=== PATIENT | female | born 1970 | race Caucasian/White ===

== ENCOUNTER 2020-12-24 19:30 | Emergency (ER) | payer OTHER, SELFPAY ==
--- NOTE | 2020-12-24 19:34 | ED.ABDPAIN ---
HPI - Abdominal Pain General Chief Complaint: Abdominal Pain Stated Complaint: LOW ABD PAIN Time Seen by Provider: 12/24/20 19:50 Source: patient Mode of arrival: ambulatory Limitations: no limitations History of Present Illness HPI narrative: 50-year-old female presents with concern for lower abdominal pain. Reports symptoms started after doing heavy lifting and yard work on . She noticed pain first when she was having a bowel movement. Reports the pain radiates around both hips and she feels pressure in her suprapubic area. She denies other abdominal pain. She denies nausea, vomiting, diarrhea. She denies constipation, bloody stools. She denies poor appetite. She denies any direct injury or trauma. She reports she can find positions of comfort with no pain, pain occurs when she is sitting up, walking. Reports pain is relieved when she is lying on her side. Patient has history of hysterectomy. MD elicited complaint: abdominal pain Related Data Home Medications Medication Instructions Recorded Confirmed cyproheptadine 4 mg PO BID 05/07/19 08/16/20 albuterol sulfate [ProAir HFA] INHALATION 05/28/19 08/16/20 Allergies Allergy/AdvReac Type Severity Reaction Status Date / Time amoxicillin [From Augmentin] Allergy Mild Unknown Verified 12/24/20 19:35 clavulanic acid Allergy Mild Unknown Verified 12/24/20 19:35 [From Augmentin] erythromycin base Allergy Unknown anything Verified 12/24/20 19:35 mycin Review of Systems Review of Systems: Narrative: CONSTITUTIONAL: Denies malaise, chills, sweats, or fever. CARDIOVASCULAR: Denies chest pain, palpitations, or edema. RESPIRATORY: Denies cough or dyspnea. GASTROINTESTINAL: Denies abdominal pain, nausea, vomiting, diarrhea, bloody, or mucous stools. Reports suprapubic pressure, tailbone pain, suprapubic pressure with defecation. Denies loss of bowel function GENITOURINARY: Denies dysuria or hematuria. Denies abnormal vaginal discharge, bleeding. Denies loss of bladder function or perianal anesthesia SKIN: Denies bruising, redness MUSCULOSKELETAL: Reports bilateral low back pain NEUROLOGIC: Denies numbness, weakness, or headache. All systems reviewed & are unremarkable except as noted in HPI and below PMFSH Past Medical History Medical History (Updated 12/24/20 @ 20:14 by Janie Talavera NP) Anal fissure Broken fingers Broken forearm Broken toes External hemorrhoids History of sprain of both ankles Hyperlipidemia Normal colonoscopy Obesity Plantar fascia syndrome Seasonal asthma Surgical History Surgical History H/O section H/O ovarian cystectomy History of breast biopsy History of hysterectomy Family History Family History Mother Diabetes mellitus Family history of malignant neoplasm of uterus Father Carcinoma of colon Malignant neoplasm of prostate Family history of malignant neoplasm of urinary bladder Other Cerebrovascular accident Family history of kidney disease Family history of malignant neoplasm Social History Social History Smoking status: Never smoker Second hand tobacco smoke exposure: Yes Alcohol intake: current Substance use: never Substance use type: does not use Gender identity (if verbalized by the patient): Female Spiritual care concerns: Yes Agree to blood products: Yes Comments At time of signature, agree with nursing past medical, surgical, social and family history. There is no relevant family history pertinent to the presenting complaint Exam Narrative: Exam Narrative: GENERAL: Well-appearing, well-nourished, and in no acute distress. HEAD: Normocephalic, atraumatic. EYES: PERRLA, conjunctivae clear, and EOMI. ENT: Nares clear, turbinates pink, no rhinorrhea or epistaxis. Mucous membranes moist. [place]
[2020-12-24 19:35] VITALS: BP 151/81; PULSE 87; RESP 16; TEMP 37.1; O2SAT 99
== END 2020-12-24 20:20 | disposition home or self-care (01) ==
PROVIDERS: Emergency Provider Nurse Practitioner
DX: N81.9 Female genital prolapse, unspecified (principal); E78.5 Hyperlipidemia, unspecified; E66.9 Obesity, unspecified; J45.909 Unspecified asthma, uncomplicated
CPT/HCPCS: 81003; 99212; G0463

== ENCOUNTER 2021-01-05 07:58 | Outpatient (CLI) | payer OTHER, SELFPAY ==
--- NOTE | ~2021-01-05 | MM_ITS ---
EXAMINATION: MM screening [facility] BI w heena HISTORY: Screening mammogram TECHNIQUE: Craniocaudal and mediolateral oblique 3-D tomosynthesis images were obtained and synthetic 2-D images were generated. CAD analysis was submitted and interpreted. COMPARISON: 02/14/2019, 01/29/2018, 12/26/2016 BREAST PARENCHYMAL COMPOSITION: There are scattered areas of fibroglandular density. FINDINGS: There is no evidence of suspicious mass, calcification, or architectural distortion to sugg est malignancy in either breast. There has been no suspicious interval change. IMPRESSION: 1. No mammographic evidence of malignancy. 2. Recommend routine screening mammography in one year. BI-RADS Category 1: Negative Reviewed, dictated and finalized at location A.
== END 2021-01-05 07:59 | disposition home or self-care (01) ==
LOC: ANHIMG 08:01
PROVIDERS: PCP Obstetrics & Gynecology; Visit Provider Obstetrics & Gynecology
DX: Z12.31 Encounter for screening mammogram for malignant neoplasm of breast (principal)
CPT/HCPCS: 77063; 77067

== ENCOUNTER → 2021-01-26 12:25 | Outpatient (CLI) | payer OTHER, SELFPAY ==
--- NOTE | ~2021-01-26 | XR_ITS ---
EXAMINATION: XR hand RT min 3V DATE: 01/26/2021 12:58 INDICATION: Right hand pain. TECHNIQUE: 3 views of right hand were obtained. COMPARISON: None. FINDINGS: Bone alignment is normal. No fracture. There is mild osteoarthritis of first carpometacarpa l joint, second metacarpophalangeal joint, first interphalangeal joint, and fourth distal interphalan geal joint. There is moderate osteoarthritis of second and fifth distal interphalangeal joints. IMPRESSION: 1. Polyarticular osteoarthritis. Reviewed, dictated and finalized at location A.
--- NOTE | ~2021-01-26 | XR_ITS ---
EXAMINATION: XR hand LT min 3V DATE: 01/26/2021 12:58 INDICATION: Left hand pain. TECHNIQUE: 3 views of left hand were obtained. COMPARISON: None. FINDINGS: Bone alignment is normal. No fracture. There is severe osteoarthritis of first carpometacar pal joint and mild osteoarthritis of second, third, and fifth distal interphalangeal joints. IMPRESSION: 1. Polyarticular osteoarthritis. Reviewed, dictated and finalized at location A.
== END ==
PROVIDERS: PCP Family Medicine; Visit Provider Physician Assistant
DX: M19.041 Primary osteoarthritis, right hand (principal); M19.042 Primary osteoarthritis, left hand
CPT/HCPCS: 73130

== ENCOUNTER 2021-02-06 14:21 | Emergency (ER) | payer OTHER, SELFPAY ==
--- NOTE | ~2021-02-06 | XR_ITS ---
EXAMINATION: XR shoulder RT min 2V DATE: 02/06/2021 15:08 INDICATION: Right shoulder pain. TECHNIQUE: 4 views of right shoulder were obtained. COMPARISON: None. FINDINGS: Bone alignment is normal. No fracture. The glenohumeral joint space is normal. There are lo ose bodies in the glenohumeral joint. There is mild acromioclavicular joint osteoarthritis. IMPRESSION: 1. Loose bodies in the glenohumeral joint. 2. Mild acromioclavicular joint osteoarthritis. Reviewed, dictated and finalized at location B.
[2021-02-06 14:29] VITALS: BP 138/97; PULSE 97; RESP 18; TEMP 37.4; O2SAT 100
--- NOTE | 2021-02-06 14:45 | ED.GENADULT ---
HPI - General Adult General Chief complaint: Extremity Problem,Nontraumatic Stated complaint: rt arm pain Time Seen by Provider: 02/06/21 14:46 Source: patient Mode of arrival: ambulatory Limitations: no limitations History of Present Illness HPI narrative: Patient is a 50-year-old female presents to urgent care via POV for evaluation of right shoulder pain that has been present for 2 days. She reports that shoulder pain is generalized. Additionally, she reports constant sharp and achy pain, decreased range of motion, difficulty picking up objects, and sleep difficulty secondary to pain. No relief with Aleve, ibuprofen, applied heat or ice. Everything worsens symptoms. She reports her pain is a 9 out of 10 on a pain scale. 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 She also reports lifting her granddaughter over the weekend which she usually does not. She reports a recent diagnosis of osteoarthritis Related Data Home Medications Medication Instructions Recorded Confirmed albuterol sulfate [ProAir HFA] 2 puff INHALATION QID PRN 05/28/19 02/06/21 Allergies Allergy/AdvReac Type Severity Reaction Status Date / Time amoxicillin [From Augmentin] Allergy Mild Nausea, Verified 02/06/21 14:35 abdominal pain clavulanic acid Allergy Mild Nausea, Verified 02/06/21 14:35 [From Augmentin] abdominal pain erythromycin base Allergy Unknown anything Verified 02/06/21 14:35 mycin Review of Systems Review of Systems: Denies fever, chills, sweats, change in appetite, poor p.o. intake, malaise, calf tenderness, skin color changes, rash, warmth, swelling, numbness, tingling, loss of sensation, deformity, decreased range of motion, weakness, difficulty with ambulation/coordination, nausea, vomiting, lymphadenopathy, shortness of breath, chest pain, heart palpitations, and heart murmur. [facility] Past Medical History Medical History (Updated 02/06/21 @ 15:26 by GARETH Gaston, BC) Anal fissure Broken fingers Broken forearm Broken toes External hemorrhoids History of sprain of both ankles Hyperlipidemia Normal colonoscopy Obesity Plantar fascia syndrome Seasonal asthma Surgical History Surgical History H/O section H/O ovarian cystectomy History of breast biopsy History of hysterectomy Family History Family History Mother Diabetes mellitus Family history of malignant neoplasm of uterus Father Carcinoma of colon Malignant neoplasm of prostate Family history of malignant neoplasm of urinary bladder Other Cerebrovascular accident Family history of kidney disease Family history of malignant neoplasm Social History Social History Smoking status: Never smoker Second hand tobacco smoke exposure: Yes Alcohol intake: current Alcohol use details: Very rarely Substance use: never Substance use type: does not use Gender identity (if verbalized by the patient): Female Spiritual care concerns: Yes Agree to blood products: Yes Comments I have reviewed and agree with the patient's past medical, surgical, social, and family hx as documented by the RN. There is no relevant family history pertinent to the presenting complaint. Exam Narrative: GENERAL: Well-appearing, well-nourished, and in no acute distress. HEAD: Normocephalic, atraumatic. NECK: Supple. No Lymphadenopathy or nuchal rigidity appreciated. CHEST: Bilateral lung william are clear to auscultation. No respiratory distress. No evidence of cough or pleuritic cp upon examination. HEART: Regular rate and rhythm. No murmur, gallop, or rub heard. EXTREMITIES: Moderate pain elicited to anterior and posterior aspect of right shoulder with deep palpatio
== END 2021-02-06 15:38 | disposition home or self-care (01) ==
PROVIDERS: Emergency Provider Nurse Practitioner Family
DX: M25.511 Pain in right shoulder (principal); E78.5 Hyperlipidemia, unspecified; E66.9 Obesity, unspecified; Z68.34 Body mass index [BMI] 34.0-34.9, adult
CPT/HCPCS: 73030; 99213; G0463

== ENCOUNTER 2022-03-05 14:59 | Emergency (ER) | payer OTHER, SELFPAY ==
[2022-03-05 15:10] VITALS: BP 146/76; PULSE 87; RESP 16; TEMP 37; O2SAT 97
--- NOTE | 2022-03-05 15:58 | ED.SKABFB ---
HPI - Skin/Abscess/Foreign Bdy General Chief complaint: Skin/Abscess/Foreign Body Stated complaint: INFECTED SPOT ON BACK Time Seen by Provider: 03/05/22 15:15 Source: patient Mode of arrival: ambulatory Limitations: no limitations History of Present Illness HPI narrative: Ms. Pimentel is a 51-year-old female patient presenting to the clinic today with complaints of a possible infection to her left upper back. She reports that this has been an ongoing concern for a couple years and saw her insulation sprayer and they told her that it was just a blackhead. She reports 1 to 2 years ago that it had drained and had a nasty smell but went away. Over the last couple months it has returned and has gotten more tender and painful and now she noticed yesterday that it was red and swollen. She denies any fever or chills. Related Data Home Medications Medication Instructions Recorded Confirmed escitalopram oxalate 10 mg tablet 10 mg PO DAILY 09/18/21 03/05/22 Allergies Allergy/AdvReac Type Severity Reaction Status Date / Time amoxicillin [From Augmentin] Allergy Mild Nausea, Verified 03/05/22 15:10 abdominal pain clavulanic acid Allergy Mild Nausea, Verified 03/05/22 15:10 [From Augmentin] abdominal pain erythromycin base Allergy Unknown anything Verified 03/05/22 15:10 mycin Review of Systems Review of Systems: Pertinent positives per HPI. Patient denies any fever, chills, rash, headache, visual changes, dizziness, cough, runny nose, sore throat, shortness of breath, chest pain, palpitations, nausea, vomiting, diarrhea, constipation, abdominal pain, or any urinary issues. [facility] Past Medical History Medical History Anal fissure Broken fingers Broken forearm Broken toes External hemorrhoids History of sprain of both ankles Hyperlipidemia Normal colonoscopy Obesity Osteoarthritis Plantar fascia syndrome Seasonal asthma Surgical History Surgical History H/O section H/O ovarian cystectomy History of breast biopsy History of hysterectomy Family History Family History Mother Diabetes mellitus Family history of malignant neoplasm of uterus Father Carcinoma of colon Malignant neoplasm of prostate Family history of malignant neoplasm of urinary bladder Other Cerebrovascular accident Family history of kidney disease Family history of malignant neoplasm Social History Social History Smoking status: Never smoker Second hand tobacco smoke exposure: Yes Alcohol intake: current Alcohol use details: very rarely Substance use: never Substance use type: does not use Gender identity (if verbalized by the patient): Female Spiritual care concerns: Yes Agree to blood products: Yes Comments At the time of my signature, I reviewed and agree with the nursing past medical, surgical, social, and family history. There is no relevant family history pertinent to the patient complaint. Exam Narrative: General: Well-developed, well nourished, in no apparent distress Head: Normocephalic, atraumatic. Cardio: Regular rate and rhythm, s1 and s2 normal, no murmur appreciated. Resp: Clear to auscultation bilaterally, no rhonchi, rales, wheezing or rubs. Integumentary: [place], warm, and dry, half dollar size induration with swelling and mild erythremia to the left upper back-very mild fluctuance felt, tenderness to palpation Course Course Emergency Course: Portions of this record may have been created with voice recognition software. Level of Care: Express Care Visit Vital Signs Vital signs: Vital Signs Temperature 37.0 C 03/05/22 15:10 Pulse Rate 87 03/05/22 15:10 Respiratory Rate 16 03/05/22 15:10 Blood Pressure 146/
== END 2022-03-05 16:10 | disposition home or self-care (01) ==
PROVIDERS: Emergency Provider Nurse Practitioner Family; PCP Family Medicine
DX: L72.3 Sebaceous cyst (principal); E78.5 Hyperlipidemia, unspecified; M19.90 Unspecified osteoarthritis, unspecified site; J45.909 Unspecified asthma, uncomplicated; E66.9 Obesity, unspecified; Z68.36 Body mass index [BMI] 36.0-36.9, adult
CPT/HCPCS: 10060; 99213; G0463

== ENCOUNTER 2022-03-08 16:05 | Outpatient (CLI) | payer OTHER, SELFPAY ==
--- NOTE | ~2022-03-08 | XR_ITS ---
XR foot LT min 3V DATE: 03/08/2022 16:27 INDICATION: Medial distal left foot pain TECHNIQUE: 4 views COMPARISON: None FINDINGS: Plantar and posterior calcaneal enthesopathy. Mild osteoarthritis at the first metatarsophalangeal joint. No fracture, dislocation, periosteal reaction or bone destruction is evident. IMPRESSION: Plantar and posterior calcaneal enthesopathy Mild first metatarsophalangeal osteoarthritis Reviewed, dictated and finalized at location A.
== END 2022-03-08 16:06 | disposition home or self-care (01) ==
PROVIDERS: PCP Family Medicine; Visit Provider Physician Assistant
DX: M77.32 Calcaneal spur, left foot (principal); M19.072 Primary osteoarthritis, left ankle and foot
CPT/HCPCS: 73630

== ENCOUNTER 2022-05-16 08:31 | Outpatient (CLI) | payer OTHER, SELFPAY ==
--- NOTE | 2022-05-16 11:00 | NEURO_ITS ---
Impression: # History of bilateral arm pain, numbness and fingers locking up. # Right Carpal Tunnel Syndrome. # Mild, evolving left Carpal Tunnel Syndrome. # Normal needle/EMG exam. # Clinical correlation recommended. Motor Nerve Conduction Upper Extremities Median Nerve Conduction Velocity (m/sec) Terminal Latency (msec) Response Voltage(mV) Elbow-Wrist Wrist Elbow Wrist Right 66 6.2 5 5 Left 60 3.2 5 6 Ulnar Nerve Conduction Velocity (m/sec) Terminal Latency (msec) Response Voltage(mV) Above Elbow Below Elbow Wrist Above Elbow Below Elbow Wrist Right 67 67 2.3 5 6 6 Left 66 64 2.2 6 4 5 F-Wave Latency Median (ms) Ulnar (ms) Right 28.9 27.3 Left 26.2 26.9 Sensory Nerve Conduction Upper Extremities Median Nerve Stimulation Terminal Latency (msec) Wrist/Digit Response Voltage (uV) Wrist Right 6.5/6.4 14/17 Left 3.7/3.9 39/27 Ulnar Nerve Stimulation Terminal Latency (msec) Wrist/Digit Response Voltage (uV) Wrist Right 2.4 38 Left 2.3 58 Radial Nerve Terminal Latency (msec) Response Voltage(mV) Right 1.5 53 Left 2.0 25 Left Right Muscles Examined Fibrillation Fasciculation Scarcity Voltage Duration Left Right Left Right Left Right Left Right Left Right Deltoid Biceps X X Brachioradialis Triceps X X Pronator Teres X X Ext Indicis X X Ext Digitorum X X Abd Poll Brev X X 1st Dorsal Interosseus Paraspinals MTDD
== END 2022-05-16 08:32 | disposition home or self-care (01) ==
PROVIDERS: PCP Family Medicine; Visit Provider Physician Assistant
DX: R20.2 Paresthesia of skin (principal); G56.03 Carpal tunnel syndrome, bilateral upper limbs
CPT/HCPCS: 95886; 95911

== ENCOUNTER 2024-04-17 15:20 | Emergency (ER) | payer OTHER, SELFPAY ==
[2024-04-17 15:31] VITALS: BP 143/83; PULSE 82; RESP 18; TEMP 37; O2SAT 98
--- NOTE | 2024-04-17 15:42 | ED.URI ---
HPI - URI/Sore Throat General Chief Complaint: Upper Respiratory Infection Stated Complaint: Sore Throat History of Present Illness HPI Narrative: 53-year-old female presented for complaint of sore throat, runny nose, bilateral ear pressure and hoarse voice. Onset 5 days. Started with a cough today. Has taken multiple [id number] medications for symptoms. Denies shortness of breath, wheezing, nausea vomiting, diarrhea, fevers or chills. Related Data Home Medications Medication Instructions Recorded Confirmed escitalopram oxalate 10 mg tablet 10 mg PO DAILY 09/18/21 04/17/24 Allergies Allergy/AdvReac Type Severity Reaction Status Date / Time amoxicillin [From Augmentin] AdvReac Mild Nausea, Verified 04/17/24 15:54 abdominal pain clavulanic acid AdvReac Mild Nausea, Verified 04/17/24 15:54 [From Augmentin] abdominal pain erythromycin base AdvReac Unknown anything Verified 04/17/24 15:54 mycin Review of Systems Review of Systems: ROS per HPI PMFSH Past Medical History Medical History Anal fissure Broken fingers Broken forearm Broken toes External hemorrhoids History of sprain of both ankles Hyperlipidemia Normal colonoscopy Obesity Osteoarthritis Plantar fascia syndrome Seasonal asthma Surgical History Surgical History H/O section H/O ovarian cystectomy History of breast biopsy History of hysterectomy Family History Family History Mother Diabetes mellitus Family history of malignant neoplasm of uterus Father Carcinoma of colon Malignant neoplasm of prostate Family history of malignant neoplasm of urinary bladder Other Cerebrovascular accident Family history of kidney disease Family history of malignant neoplasm Social History Social History Smoking status: Never smoker Second hand tobacco smoke exposure: Yes Alcohol intake: current Alcohol use details: very rarely Substance use: never Substance use type: does not use Lack of Transportation: No Lack of Food: Never True Current Housing: I Have Housing Concerned About Future Housing: No Difficulty Paying Gas/Electric Bills: No Difficulty Paying for Meds: No Currently Unemployed: No Education: Master's Degree or Higher Difficulty w/ Childcare or Family Care: No Living arrangements: with family Occupation/Education: occupation Gender identity (if verbalized by the patient): Female Spiritual care concerns: Yes Agree to blood products: Yes Exam Narrative: GENERAL: well-appearing, no acute distress. EYES: conjunctivae clear ENT: Mucous membranes moist. TMs pearly danielle with normal light reflex bilaterally; no tragal tenderness. Oropharynx mildly erythematous without lesions. Hoarse voice. Tonsils not enlarged and without exudate. No drooling, no trismus, uvula midline. No tripod positioning, hot potato voice, or soft palate swelling. NECK: Supple. No lymphadenopathy CHEST: Clear to auscultation, breath sounds equal. No respiratory distress, speaks in full sentences. HEART: Regular rate and rhythm. No murmur heard. SKIN: Warm, dry, no rash. NEURO: Alert and oriented x3. Course Course Emergency Course: Patient is aware of diagnosis, understands and agrees to treatment plan. Anticipatory guidance given. Patient agrees to follow-up as directed and is aware of reasons to seek care at the emergency department. Portions of this record may have been created with voice recognition software Level of Care: Express Care Visit Vital Signs Vital signs: Vital Signs Temperature 98.6 F 04/17/24 15:31 Pulse Rate 82 04/17/24 15:31 Respiratory Rate 18 04/17/24 15:31 Blood Pressure 143/83 H 04/17/24 15:31 Pulse Oximetry 98 04/17/24 15:31 Oxygen Delivery Room Air 04/17/24 15:31 Temperature 98.6 F 04/17/24 15:31 Pulse Rate 82 04/17/24 15:31 Respiratory Rate 18 04/17/24 15:31 Blood Pressure 143/83 H 04/17/24 15:31 Pulse Oximetry 98 04/17/24 15:31 Oxygen Delivery Room Air 04/17/24 15:31 MDM - URI/Sore Throat MDM Narrative Medical decision making narrative: Negative strep result reviewed with pt. Rx steroid. Advise supportive treatments. Patient is appropriate for outpatient treatment and follow-up. Differential Diagnosis Differential diagnosis: Likely upper respiratory infection, viral infection and pharyngitis Discharge Plan Discharge Clinical Impression: Upper respiratory infection Patient Disposition: Home, Self-Care Condition: Stable Instructions: Antibiotic Form, Upper Respiratory Infection (ED) Additional Instructions: Rapid strep swab was negative today You will be notified in a few days if the culture comes back positive for strep, and appropriate antibiotics will be called in at that time. if symptoms are due to a viral illness, it is not treated with antibiotics. Viral symptoms can be present for up to 10-14 days. Recommend Flonase spray and Zyrtec for sinus congestion Cough syrup may cause drowsiness; avoid driving or take it at night time. Tylenol every 8 hours as needed for pain/fever Soft foods, cool liquids, warm tea. Gargle with warm saltwater twice a day. Chloraseptic spray and throat lozenges. Rest and stay hydrated. --Follow up with your PCP --Go to the ER immediately if you cannot swallow your saliva, trouble breathing/wheezing, throat swelling, pain is persistent and severe Prescriptions: New methylprednisolone [Medrol (Rodolfo)] 4 mg tablets,dose pack See Rx Instructions .ROUTE .COMPLEX Qty: 21 0RF Rx Instructions: orally per package directions No Action escitalopram oxalate 10 mg tablet 10 mg PO DAILY albuterol sulfate [ProAir HFA] 90 mcg/actuation HFA aerosol inhaler 2 puff INHALATION QID PRN (Reason: Shortness Of Breath) Qty: 8.5 2RF bupropion HCl [Wellbutrin XL] 300 mg tablet extended release 24 hr 300 mg PO QAM Qty: 90 3RF Follow-up/Referrals: Raisa Porter MD [Primary Care Provider] - Time of Disposition: 16:16
[2024-04-17 16:35] LABS: EDSTREPNEGPOS1 Negative (Negative)
== END 2024-04-17 16:20 | disposition home or self-care (01) ==
PROVIDERS: Emergency Provider Nurse Practitioner Family; PCP Family Medicine
DX: J06.9 Acute upper respiratory infection, unspecified (principal); E78.5 Hyperlipidemia, unspecified
CPT/HCPCS: 87081; 87880; 99213; G0463